=== PATIENT | female | born 1960 | race Caucasian/White ===

== ENCOUNTER → 2025-08-21 | Outpatient (CLI) | payer MEDICARE, SELFPAY ==
[2025-08-21 12:11] LABS: Basophils # (Auto) 0.0 Thou/mm3 (0.0-0.2); Basophils % (Auto) 1 % (0-2.5); Eosinophils # (Auto) 0.2 Thou/mm3 (0.0-0.5); Eosinophils % (Auto) 4 % (0-10); Hematocrit 44.1 % (36.0-46.0); Hemoglobin 14.7 g/dL (12.0-16.0); Immature Granulocytes Auto 0.01 Thou/mm3 (0.00-0.00); Lymphocytes # (Auto) 1.5 Thou/mm3 (1.0-4.8); Lymphocytes % (Auto) 28 % (10-50); Mean Corpuscular HGB Conc 33.3 g/dl (31.0-37.0); Mean Corpuscular Hemoglobin 29.9 pg (25.0-35.0); Mean Corpuscular Volume 90 fL (80-100); Monocytes # (Auto) 0.6 Thou/mm3 (0.0-0.8); Monocytes % (Auto) 10 % (0-12); Neutrophils # (Auto) 3.2 Thou/mm3 (1.8-7.7); Neutrophils % (Auto) 58 % (37-80); Nucleated Red Blood Cell # 0.00 Thou/mm3 (0.00-0.00); Nucleated Red Blood Cell % 0 /100 WBC (0); Platelet Count 224 Thou/mm3 (140-440); RDW Standard Deviation 42.5 fL (36.4-46.3); Red Blood Count 4.92 Miln/mm3 (4.00-5.20); White Blood Count 5.5 Thou/mm3 (3.6-11.0)
[2025-08-21 12:22] LABS: Alanine Aminotransferase 22 U/L (10-49); Albumin, Serum 4.7 gm/dL (3.4-4.8); Alkaline Phosphatase 62 U/L (46-116); Anion Gap 9 (7-16); Aspartate Amino Transferase 22 U/L (0-34); BUN/Creatinine Ratio 15 Ratio (12-20); Bilirubin,Direct 0.2 mg/dL (0.0-0.3); Bilirubin,Total 0.7 mg/dL (0.3-1.2); Blood Urea Nitrogen 9 mg/dL (9-23); Calcium 9.7 mg/dL (8.3-10.6); Carbon Dioxide 28.7 mMol/L (20.0-31.0); Cardiac Risk Estimate 3.4 RATIO (3.7-5.6); Chloride 103 mMol/L (98-107); Cholesterol 129 mg/dL (132-200); Creatinine (Component) 0.6 mg/dL (0.6-1.3); Free T4 (Free Thyroxine) 1.28 ng/dL (0.89-1.76); Glucose 112 mg/dL (74-106); HDL Cholesterol 38 mg/dL (40-60); LDL Cholesterol,Calculated 48 mg/dL (0-130); Osmolality,Calculated 280 (275-295); Potassium 3.8 mMol/L (3.4-5.1); Sodium 141 mMol/L (136-145); Thyroid Stimulating Hormone 0.79 uIU/mL (0.55-4.78); Total Protein 7.2 gm/dL (5.7-8.2); Triglycerides 216 mg/dL (30-150); eGFR > 60 See Note
== END | disposition home or self-care (01) ==
PROVIDERS: PCP Internal Medicine Cardiovascular Disease; Referring Provider Internal Medicine Cardiovascular Disease; Visit Provider Internal Medicine Cardiovascular Disease
DX: I10 Essential (primary) hypertension (principal); E78.2 Mixed hyperlipidemia; I49.9 Cardiac arrhythmia, unspecified
CPT/HCPCS: 36415; 80048; 80061; 80076; 84439; 84443; 85025

== ENCOUNTER 2025-09-04 20:00 | Emergency (ER) | payer MEDICARE, MEDICAID, SELFPAY ==
[2025-09-04 20:01] VITALS: BMI 30.6
--- NOTE | 2025-09-04 21:42 | XR_ITS ---
Examination: Knee, left, 3 views Technique: Knee AP, lateral, oblique 3 views Date and time of exam: September 04, 2025, 10:10 p.m. 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 Small knee effusion No fracture or dislocation IMPRESSION: No fracture or dislocation
--- NOTE | 2025-09-04 21:42 | PD.EDEXREM ---
ED Extremity Problem RME/HPI General Chief complaint: Extremity Problem,Nontraumatic Stated complaint: PAIN IN LEFT LEG, HEARD POP IN KNEE Time Seen by Provider: 09/04/25 20:39 Arrival date/time: 09/04/25 20:00 64-year-old female reports with complaint of left knee pain that began this afternoon. Patient states while attempting to stand she heard a pop in the left knee the pain shot down to the tibia bone. Patient denies any swelling bruising deformity numbness tingling or decreased range of motion in the knee. Patient states that she has been taking Tylenol which offered some relief but last dose was at 4:00 this evening. Patient states that she is able to ambulate but it causes pain Limitations: no limitations Related Data Home Medications ?Medication ?Instructions ?Recorded ?Confirmed Aspirin (Aspir 81) 81 mg PO QAM ##0 03/20/15 Hydrocodone/Acetaminophen * (NORCO 1 tab PO Q4H PRN PAIN #0 tabs 03/20/15 5/325 *) atorvastatin 20 mg tablet (Lipitor) 20 mg PO QAM #0 tabs 03/20/15 diclofenac sodium 75 mg 75 mg PO QAM ##0 03/20/15 tablet,delayed release lisinopril 20 mg tablet 20 mg PO QDAY #0 tabs 03/20/15 Allergies Allergy/AdvReac Type Severity Reaction Status Date / Time NKA* Allergy Uncoded 03/21/15 10:48 Review of Systems Musculoskeletal Musculoskeletal: Reports arthralgias, Denies joint swelling, Denies numbness and Denies tingling Integumentary/Breasts Skin/Breast: Denies unusual bruising and Denies wounds Neurologic Neurologic: Denies numbness and Denies tingling Past Medical History Social History SMOKING STATUS: Never smoker ED Exam General Limitations: Present no limitations General appearance: Present alert and in no apparent distress Expanded Lower Extremity Exam Hip/Pelvis exam: Present normal inspection and full ROM Upper leg exam: Present normal inspection and full ROM Knee exam: Present normal inspection, full ROM, tenderness (Left lateral joint line), pain with valgus and pain with varus; Absent swelling, ecchymosis, deformity, dislocation, effusion, laxity with valgus or laxity with varus Lower leg exam: Present normal inspection, full ROM and tenderness (Diffusely over anterior left tibia no swelling redness indentations or bruising noted); Absent swelling, ecchymosis, deformity or palpable cord Ankle exam: Present normal inspection and full ROM Foot/toe exam: Present normal inspection and full ROM Gait: antalgic Neurological Exam Neurological exam: Present alert, oriented X3 and CN II-XII intact Psychiatric Psychiatric exam: Present normal affect and normal mood Skin Skin exam: Present warm, dry, intact and normal color Course Quality Measures none Orders Category Date Time Status XR knee LT 3V Stat Exams 09/04/25 21:42 Taken Ketorolac Inj [Toradol Inj] Med 09/04/25 21:41 Discontinued 30 mg IM X1 ONE Vital Signs Vital signs: Vital Signs Temperature 98.2 F 09/04/25 22:13 Pulse Rate 81 09/04/25 22:13 Respiratory Rate 18 09/04/25 22:13 Blood Pressure 156/93 H 09/04/25 22:13 Pulse Oximetry (%) 96 09/04/25 22:13 Oxygen Delivery Method Room Air 09/04/25 22:13 Extremity Problem Patient data External records reviewed:: None Clinical information provided by:: patient Social determinants that could affect healthcare access:: none Patient has the following chronic illnesses:: none How is presenting disease/condition affected by chronic disease/condition?: no chronic disease Evaluation data The following diagnostics were reviewed and interpreted by me:: radiology exam(s) Lab and/or radiology exams considered but not ordered:: none Interpretation Summary: Left knee x-ray is negative for fractures or dislocations Medications / Prescriptions Medications or Prescriptions considered but not ordered:: None Medication administrations:: Medication Administration History Discontinued Medications Ketorolac Tromethamine (Ketorolac Inj 30 Mg/Ml Vial) 30 mg IM X1 ONE Stop: 09/04/25 21:42 Last Admin: 09/04/25 21:48 Dose: 30 mg Documented By: OA As above Consultations Consultation(s) initiated? (list below): No Diagnosis Most likely diagnosis given after review of the tests above:: Left knee sprain Admission Indicated Admission indicated?: not indicated Admission Request Was there a request for admission?: No Disposition Plan Disposition Plan: Discharge Discharge Attestation Discharge Attestation: The patient and all family members were given an opportunity to ask questions and understood the discharge instructions. Discharge instructions specifically effects, indications for sooner follow up or return to the emergency department, and the expected course of current diagnosis. Patient condition: Stable Discharge Plan Plan Patient Disposition: HOME (Self Care) Prescriptions/Referrals Prescriptions/Med Rec: No Action Aspirin (Aspir 81) 81 MG TABLET.DR 81 mg PO QAM Qty: 0 atorvastatin [Lipitor] 20 MG tablet 20 mg PO QAM Qty: 0 lisinopril 20 MG tablet 20 mg PO QDAY Qty: 0 diclofenac sodium 75 MG tablet,delayed release (DR/EC) 75 mg PO QAM Qty: 0 Hydrocodone/Acetaminophen * (NORCO 5/325 *) 1 TAB tablet 1 tab PO Q4H PRN (Reason: PAIN) Qty: 0 Referrals: Frank Bae MD [Primary Care Provider, Family Practice] - In 1 week Problem List Clinical Impression: Knee sprain Patient/Caregiver Discharge Instructions Discharge Activity: activity as tolerated Education Materials: ED Knee Sprain Additional Instructions: The x-ray of your knee was normal the pain could be due to soft tissue you should follow-up with your primary care provider for an MRI if symptoms does not improve over the next 3 to 5 days. Apply ice with a towel elevate the knee for 20 minutes will also help with swelling use [id number] medication such as Tylenol ibuprofen as needed for pain Print Language: Turkmen Stand Alone Forms: Nancy Award Info., Patient Portal Info Letter
[2025-09-04] MEDS: KETOROLAC INJ 30 MG/ML VIAL IM (21:48)
[2025-09-04 22:13] VITALS: BP 156/93; PULSE 81; RESP 18; TEMP 36.8; O2SAT 96
== END 2025-09-04 23:37 | disposition home or self-care (01) ==
PROVIDERS: Emergency Provider Physician Assistant; PCP Family Medicine
DX: S83.92XA Sprain of unspecified site of left knee, initial encounter (principal); X50.0XXA Overexertion from strenuous movement or load, initial encounter
CPT/HCPCS: 73562; 96372; 99283; J1885

== ENCOUNTER → 2025-10-26 | Outpatient (CLI) | payer MEDICARE, MEDICAID, SELFPAY ==
--- NOTE | 2025-10-26 08:30 | XR_ITS ---
Exam: MRI knee without contrast, left Date and time of exam: October 26, 2025, 0946 hours INDICATIONS: Burning sensation knee joint clicking 2 months Technique: Multiple axial, coronal, and sagittal sections on the knee have been obtained. T2-Weighted sagittal, fat-suppressed images, TR 3,500, TE 62, T2 weighted coronal fat-saturated images, TR 3,500, TE 62 Proton density sagittal sections, TR 1800, TE 31. T-1 weighted coronal images, TR 524, TE 13.0 Findings: All of the images are significantly degraded by patient motion Large horizontal linear tear posterior horn medial meniscus communicating with the inner margin Meniscocapsular separation body of the medial meniscus Complex tears anterior horn lateral meniscus Moderate sprain anterior cruciate ligament No bone contusion or occult fracture Moderate tricompartment joint narrowing Patellar tendon quadriceps tendon is intact IMPRESSION: Large horizontal linear tear posterior horn medial meniscus Meniscocapsular separation body of the medial meniscus Complex tears anterior horn lateral meniscus Moderate sprain anterior cruciate ligament
== END | disposition home or self-care (01) ==
LOC: SMRI 08:00
PROVIDERS: PCP Internal Medicine; Referring Provider Internal Medicine; Visit Provider Internal Medicine
DX: S83.242A Other tear of medial meniscus, current injury, left knee, initial encounter (principal); S83.282A Other tear of lateral meniscus, current injury, left knee, initial encounter; S83.512A Sprain of anterior cruciate ligament of left knee, initial encounter; S83.195A Other dislocation of left knee, initial encounter; X58.XXXA Exposure to other specified factors, initial encounter
CPT/HCPCS: 73721